=== PATIENT | female | born 1980 | race Caucasian/White ===

== ENCOUNTER 2017-04-19 09:17 | Emergency (ER) | payer SELFPAY ==
[2017-04-19 09:37] VITALS: BP 124/84; PULSE 92; RESP 16; TEMP 98; O2SAT 100
--- NOTE | 2017-04-19 10:06 | C.PDOC ---
History Of Present Illness 36 y/o female with Hx of Sinusitis presents to ED with complaints of nasal congestion, Headache and sore throat. Patient states she has had Bacteremia in the past for which she has been taking Penicillin for. Patient denies fever, chills, n/v/d or any other complaints at this time. Time Seen by Provider: 04/19/17 09:29 Chief Complaint (Nursing): ENT Problem History Per: Patient History/Exam Limitations: None Onset/Duration Of Symptoms: Days Current Symptoms Are (Timing): Still Present Past Medical History Reviewed: Historical Data, Nursing Documentation, Vital Signs Vital Signs: Last Vital Signs Temp 98 F 04/19/17 09:29 Pulse 92 H 04/19/17 09:29 Resp 16 04/19/17 09:29 BP 124/84 04/19/17 09:29 Pulse Ox 100 04/19/17 10:10 Family History: States: No Known Family Hx - Social History Hx Alcohol Use: No Hx Substance Use: No - Immunization History Hx Tetanus Toxoid Vaccination: No Hx Influenza Vaccination: No Hx Pneumococcal Vaccination: No Review Of Systems Except As Marked, All Systems Reviewed And Found Negative. Constitutional: Negative for: Fever, Chills ENT: Positive for: Nose Congestion, Throat Swelling Gastrointestinal: Negative for: Nausea, Vomiting, Diarrhea Neurological: Positive for: Headache Physical Exam - Physical Exam Appears: Non-toxic, No Acute Distress Skin: Normal Color, Warm Head: Atraumatic, Normacephalic Eye(s): bilateral: Other (Watery Eyes) Oral Mucosa: Moist Throat: Normal, No Erythema Neck: Normal ROM Cardiovascular: Rhythm Regular, No Murmur Respiratory: Normal Breath Sounds, No Rales, No Rhonchi, No Wheezing Extremity: Normal ROM, Capillary Refill (<2 seconds) Neurological/Psych: Oriented x3 ED Course And Treatment O2 Sat by Pulse Oximetry: 100 (RA) Pulse Ox Interpretation: Normal Disposition Counseled Patient/Family Regarding: Need For Followup, Rx Given - Disposition Referrals: [facility] at [facility] [Outside] Disposition: HOME/ ROUTINE Disposition Time: 10:03 Condition: STABLE Additional Instructions: Take antibiotics for sinusitis. You can use Afran nasal spay for next 5 days. Follow up in clinic and ENT. Return to the Emergency Department with any further complaints. Prescriptions: Amoxicillin/Clavulanate [Augmentin 875 MG-125 MG] 1 tab PO BID #14 tab Oxymetazoline 0.05% [Oxymetazoline HCl 30 Ml] 1 ml NS BID #1 bottle Prednisone [Deltasone] 40 mg PO DAILY #8 tablet Instructions: Sinusitis (ED) - POA Present On Arrival: None - Clinical Impression Clinical Impression: Sinusitis - Scribe Statement The provider has reviewed the documentation as recorded by the Oneal Roberto All medical record entries made by the Oneal were at my direction and personally dictated by me. I have reviewed the chart and agree that the record accurately reflects my personal performance of the history, physical exam, medical decision making, and the department course for this patient. I have also personally directed, reviewed, and agree with the discharge instructions and disposition.
== END 2017-04-19 10:19 | disposition home or self-care (01) ==
LOC: C.ER 09:17
DX: J32.9 Chronic sinusitis, unspecified (principal)

== ENCOUNTER 2017-05-01 11:04 | Emergency (ER) | payer SELFPAY ==
[2017-05-01 11:25] VITALS: BMI 27.9
[2017-05-01 11:29] VITALS: BP 124/75; TEMP 98.3; O2SAT 98
--- NOTE | 2017-05-01 11:47 | C.PDOC ---
History Of Present Illness 36-YEAR-OLD FEMALE, PRESENTS TO THE EMERGENCY DEPARTMENT WITH MULTIPLE COMPLAINTS. PATIENT CO PERSIST THROAT PAIN X 3 WEEKS. SEEN 04/19 FOR SAME DC W AUGMENTIN AND Oxymetazoline 0.05% [Oxymetazoline HCl 30 Ml] 1 ml NS BID #1 bottle Prednisone [Deltasone] 40 mg PO DAILY #8 tablet. MILD IMPROVEMENT. CONCERNED ABOUT REDNESS BACK OF THROAT. NO FEVER, CHILLS. PS PREV DX REFLUX BUT NOT CURRENTLY ON GI MEDS FOR SAME. PT ALSO CO GEN ACHES, PAINS LEGS, L ARM AND BACK UNK DURATION. NO TRAUMA. ?ASSOC W POSITION, AND ALSO REQUESTING FU FROM RECENT CLINIC APPT. PENDING APPOINTMENT 06/2017 EXAM NAD HEENT NO ERYTHEMA, EXUDATE. TONSIL WNL. UVULA WNL. MMM NO CERV NODES EXT NO ASYM NON TEND. SKIN NO RASH MDM POSSIBLE CHRONIC THROAT PAIN DUE TO GERD? ADVISED NEED FOR CLINIC FU Time Seen by Provider: 05/01/17 11:34 Chief Complaint (Nursing): ENT Problem History Per: Patient History/Exam Limitations: no limitations Past Medical History Reviewed: Historical Data, Nursing Documentation, Vital Signs Vital Signs: Last Vital Signs Temp 98.3 F 05/01/17 11:25 Pulse 87 05/01/17 12:03 Resp 18 05/01/17 12:03 BP 124/75 05/01/17 12:03 Pulse Ox 98 05/01/17 12:03 Family History: States: No Known Family Hx - Social History Hx Alcohol Use: No Hx Substance Use: No - Immunization History Hx Tetanus Toxoid Vaccination: No Hx Influenza Vaccination: No Hx Pneumococcal Vaccination: No Review Of Systems Except As Marked, All Systems Reviewed And Found Negative. Constitutional: Positive for: Malaise. Negative for: Fever ENT: Positive for: Throat Pain Cardiovascular: Negative for: Chest Pain, Palpitations Musculoskeletal: Positive for: Arm Pain, Back Pain Skin: Negative for: Rash Neurological: Negative for: Weakness, Numbness, Headache, Dizziness Physical Exam - Physical Exam Appears: Non-toxic, No Acute Distress Skin: Warm, Dry, No Rash Eye(s): bilateral: Normal Inspection Oral Mucosa: Moist Throat: No Erythema, No Exudate, Other (TONSIL WNL. UVULA WNL) Neck: Normal ROM, Supple, Other (NO CERV NODES) Cardiovascular: Rhythm Regular, No Murmur Respiratory: Normal Breath Sounds, No Accessory Muscle Use Extremity: Normal ROM Neurological/Psych: Oriented x3, Normal Speech ED Course And Treatment O2 Sat by Pulse Oximetry: 98 Medical Decision Making Medical Decision Making: POSSIBLE CHRONIC THROAT PAIN DUE TO GERD? ADVISED NEED FOR CLINIC FU Disposition Counseled Patient/Family Regarding: Diagnosis, Need For Followup, Rx Given - Disposition Referrals: Clinic,Med Surg [Primary Care Provider] - Disposition: HOME/ ROUTINE Disposition Time: 11:50 Condition: GOOD Prescriptions: Omeprazole Magnesium [Prilosec Otc] 20 mg PO QN #30 tablet. Instructions: Diet for Ulcers and Gastritis (ED), Gastroesophageal Reflux Disease (ED) - Clinical Impression Clinical Impression: Chronic throat pain - Scribe Statement The provider has reviewed the documentation as recorded by the Scribe (Ashley Bui) All medical record entries made by the Scribe were at my direction and personally dictated by me. I have reviewed the chart and agree that the record accurately reflects my personal performance of the history, physical exam, medical decision making, and the department course for this patient. I have also personally directed, reviewed, and agree with the discharge instructions and disposition.
[2017-05-01 12:05] VITALS: PULSE 87; RESP 18
== END 2017-05-01 12:04 | disposition home or self-care (01) ==
LOC: C.ER 11:04 → SUPCPDRO 11:04 → C.ER 12:04
DX: G89.29 Other chronic pain (principal); R07.0 Pain in throat

== ENCOUNTER 2018-08-02 15:43 | Emergency (ER) | payer MEDICAID, OTHER ==
[2018-08-02 16:04] VITALS: BMI 21.2
[2018-08-02 16:07] VITALS: BP 129/94; PULSE 92; RESP 18; TEMP 98.7; O2SAT 100
--- NOTE | 2018-08-02 16:48 | RAD ---
HISTORY: productive cough x 2 weeks COMPARISON: None available. TECHNIQUE: Chest PA and lateral FINDINGS: LUNGS: No focal consolidation. Please note that chest x-ray has limited sensitivity for the detection of pulmonary masses. PLEURA: No significant pleural effusion identified. No definite pneumothorax . CARDIOVASCULAR: Heart size appears within normal limits. No significant atherosclerotic calcification present. OSSEOUS STRUCTURES: No acute osseous abnormality identified. VISUALIZED UPPER ABDOMEN: Unremarkable. OTHER FINDINGS: None. IMPRESSION: No focal consolidation, significant pleural effusion, or definite pneumothorax identified.
--- NOTE | 2018-08-02 16:56 | C.PDOC ---
History Of Present Illness 38 y/o female presents to the ED complaining of a productive cough for 2 weeks. Patient reports she is bringing up yellow phlegm, associated with some nasal congestion. Also states that she was treated for H. pylori in the past, and is now concerned that symptoms are related. Patient already went to her ota for treatment and has follow up. She denies any fever, chills, or other associated symptoms. Time Seen by Provider: 08/02/18 15:56 Chief Complaint (Nursing): Cough, Cold, Congestion History Per: Patient History/Exam Limitations: no limitations Onset/Duration Of Symptoms: Days Current Symptoms Are (Timing): Still Present Past Medical History Reviewed: Historical Data, Nursing Documentation, Vital Signs Vital Signs: Last Vital Signs Temp 98.7 F 08/02/18 16:05 Pulse 92 H 08/02/18 16:05 Resp 18 08/02/18 16:05 BP 129/94 H 08/02/18 16:05 Pulse Ox 100 08/02/18 16:05 - Medical History Other PMH: H. pylori, hernia Surgical History: Endoscopy Family History: States: Unknown Family Hx - Social History Hx Alcohol Use: No Hx Substance Use: No - Immunization History Hx Tetanus Toxoid Vaccination: No Hx Influenza Vaccination: No Hx Pneumococcal Vaccination: No Review Of Systems Except As Marked, All Systems Reviewed And Found Negative. Constitutional: Negative for: Fever, Chills ENT: Positive for: Nose Congestion Cardiovascular: Negative for: Chest Pain, Light Headedness Respiratory: Positive for: Cough, Sputum (yellow). Negative for: Shortness of Breath, Wheezing Neurological: Negative for: Headache, Dizziness Physical Exam - Physical Exam Appears: Well, Non-toxic, No Acute Distress Skin: Normal Color, Warm, Dry Head: Atraumatic, Normacephalic Eye(s): bilateral: Normal Inspection Neck: Normal ROM, Supple Chest: Symmetrical Cardiovascular: Rhythm Regular, No Murmur Respiratory: No Accessory Muscle Use, No Rhonchi, No Wheezing, Other (Harsh breath sounds, +actively coughing) Gastrointestinal/Abdominal: Soft, No Tenderness, No Distention Extremity: Bilateral: Atraumatic, Normal Color And Temperature, Normal ROM Neurological/Psych: Oriented x3, Normal Speech ED Course And Treatment O2 Sat by Pulse Oximetry: 100 (RA) Pulse Ox Interpretation: Normal - Other Rad CXR X-Ray: Read By Radiologist Interpretation: FINDINGS: LUNGS: No focal consolidation. Please note that chest x-ray has limited sensitivity for the detection of pulmonary masses. PLEURA: No significant pleural effusion identified. No definite pneumothorax . CARDIOVASCULAR: Heart size appears within normal limits. No significant atherosclerotic calcification present. OSSEOUS STRUCTURES: No acute osseous abnormality identified. VISUALIZED UPPER ABDOMEN: Unremarkable. OTHER FINDINGS: None. IMPRESSION: No focal consolidation, significant pleural effusion, or definite pneumothorax identified. Progress Note: CXR obtained and reviewed, no acute disease. Patient given albuterol nebulizer and PO Zithromax. Requesting further evaluation for H. pylori infection. Advised patient that she needs to follow up with her ota for chronic management. Provided with rx for antibiotics, flonase, inhaler, albuterol nebulizers, and promethazine. Counseled regarding dx of bronchitis and advised to follow up with PMD or return for fever or new/worsening symptoms. Reassessment Condition: Improved Disposition Counseled Patient/Family Regarding: Studies Performed, Diagnosis, Need For Followup, Rx Given - Disposition Referrals: Mary Jo Yee MD [Staff Provider] - Disposition: HOME/ ROUTINE Disposition Time: 16:53 Condition: STABLE Additional Instructions: Follow up with PMD within 1-2 days. Return to ED if feel worse. Prescriptions: Albuterol 0.083% [Albuterol Sulfate 3 Ml] 3 ml IH .Q4-6H #100 vial Nebulizer and Compressor [Robins Choice Nebulizer] 1 each MC QID #1 each Fluticasone Nasal [Flonase] 1 spr NS BID #1 spr Mask, Face [Nebulizer Aerosol Mask Adult] 1 dev XX PRN PRN #1 dev PRN Reason: Cough Albuterol Sulfate [Proair Hfa] 1 puff IH Q6 PRN #1 inh PRN Reason: Cough Promethazine HCl/Codeine [Prometh-Codein 6.25-10 mg/5 ml] 5 ml PO .Q4-6H #150 ml Azithromycin [Zithromax] 250 mg PO DAILY #4 tab Instructions: Acute Bronchitis Forms: [employer] (Japanese) - POA Present On Arrival: None - Clinical Impression Clinical Impression: Bronchitis - 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 - Scribe Statement The provider has reviewed the documentation as recorded by the Scribe (Marianne Enciso) All medical record entries made by the Scribe were at my direction and pers onally dictated by me. I have reviewed the chart and agree that the record accurately reflects my personal performance of the history, physical exam, medical decision making, and the department course for this patient. I have also personally directed, reviewed, and agree with the discharge instructions and disposition.
[2018-08-02] MEDS ORDERED: Albuterol-Ipratrop 3 mg / 0.5 (3 ml) UD ONE (17:00)
[2018-08-02] MEDS ORDERED: Albuterol-Ipratrop 3 mg / 0.5 (3 ml) UD INH STA (17:00)
== END 2018-08-02 17:40 | disposition home or self-care (01) ==
LOC: C.ER 15:43
DX: J40 Bronchitis, not specified as acute or chronic (principal)

== ENCOUNTER 2018-08-04 18:30 | Emergency (ER) | payer OTHER ==
[2018-08-04 18:30] VITALS: BMI 21.2
[2018-08-04 18:41] VITALS: O2SAT 100
--- NOTE | 2018-08-04 19:33 | C.PDOC ---
History Of Present Illness 38 year old female presents of nausea, dizziness, coughing for the past few days. Patient was seen in the ED 2 days ago with similar complaints, patient had a negative CXR. Patient reports taking phenergan/codeine. Patient speaking in full sentences. Patient denies fever, chills, vomit, diarrhea, headache, trauma, injury, fall. Time Seen by Provider: 08/04/18 19:33 Chief Complaint (Nursing): Dizziness/Lightheaded History Per: Patient History/Exam Limitations: no limitations Onset/Duration Of Symptoms: Days Current Symptoms Are (Timing): Still Present Severity: Mild Pain Scale Rating Of: 2 Reports Recently: Seen In ED (08/02/18), Treated By A Physician Recent travel outside of the [place]: No Additional History Per: Patient, Family Past Medical History Reviewed: Historical Data, Nursing Documentation, Vital Signs Vital Signs: Last Vital Signs Temp 98.8 F 08/04/18 18:33 Pulse 102 H 08/04/18 18:33 Resp 20 08/04/18 18:33 BP 133/93 H 08/04/18 18:33 Pulse Ox 100 08/04/18 18:33 - Medical History PMH: No Chronic Diseases Surgical History: Endoscopy Family History: States: Unknown Family Hx - Social History Hx Alcohol Use: No Hx Substance Use: No - Immunization History Hx Tetanus Toxoid Vaccination: No Hx Influenza Vaccination: No Hx Pneumococcal Vaccination: No Review Of Systems Constitutional: Negative for: Fever, Chills Cardiovascular: Negative for: Chest Pain Respiratory: Positive for: Cough. Negative for: Shortness of Breath Gastrointestinal: Positive for: Nausea. Negative for: Vomiting, Abdominal Pain Neurological: Negative for: Weakness, Numbness, Dizziness Psych: Positive for: Anxiety Physical Exam - Physical Exam Appears: Non-toxic, No Acute Distress Skin: Warm, Dry Head: Normacephalic Oral Mucosa: Moist Tongue: Normal Appearing Lips: Normal Appearing Throat: No Erythema, No Exudate Neck: Supple Chest: Symmetrical Cardiovascular: Rhythm Regular Respiratory: No Rales, No Rhonchi, No Wheezing Gastrointestinal/Abdominal: Soft, No Tenderness, No Guarding, No Rebound Extremity: Bilateral: Atraumatic Neurological/Psych: Oriented x3 Gait: Steady ED Course And Treatment - Laboratory Results Result Diagrams: 08/04/18 20:02 08/04/18 20:02 O2 Sat by Pulse Oximetry: 100 (ON RA) Pulse Ox Interpretation: Normal Progress Note: Plan: - VBG. - EKG. - Labs. - Duoneb. - IV fluids. - Zofran 4 mg IVP. - Blood culture. - Influenza A B. - UA Reevaluation Time: 20:58 Reassessment Condition: Improved Disposition Counseled Patient/Family Regarding: Studies Performed, Diagnosis, Need For Followup, Rx Given - Disposition Referrals: Mary Jo Yee MD [Family Provider] - Disposition: HOME/ ROUTINE Disposition Time: 19:33 Condition: FAIR Additional Instructions: Please do not take the phenergan with codeine. Prescriptions: Prednisone [Deltasone] 20 mg PO DAILY #5 tablet Instructions: Cough, Adult (DC) Forms: [employer] (Singaporean) - Clinical Impression Clinical Impression: Reactive airway disease, Cough - Scribe Statement The provider has reviewed the documentation as recorded by the Scribe Andrew Hua All medical record entries made by the Scribe were at my direction and personally dictated by me. I have reviewed the chart and agree that the record accurately reflects my personal performance of the history, physical exam, medic al decision making, and the department course for this patient. I have also personally directed, reviewed, and agree with the discharge instructions and disposition.
[2018-08-04] MEDS ORDERED: Sodium Chloride 0.9% 1,000 ML IV ONE (19:36)
[2018-08-04] MEDS: Albuterol-Ipratrop 3 mg / 0.5 (3 ml) UD IH SCH ×3 (19:45→20:12)
[2018-08-04] MEDS ORDERED: Sodium Chloride 0.9% 1,000 ML ONE (19:52)
[2018-08-04 20:05] LABS: BASO % 0.7 % (0.0-2.0); EOS # 0.7 K/uL (0.0-0.7); EOS % 9.2 % (0.0-4.0); HEMOGLOBIN 12.7 g/dL (11.0-16.0); LYMPH # 2.7 K/uL (1.0-4.3); LYMPH % 36.6 % (20.0-40.0); MEAN CELL VOLUME 64.7 fL (81.0-99.0); MEAN CORPUSCULAR HEMOGLOBIN 20.3 pg (27.0-31.0); MEAN CORPUSCULAR HGB CONC 31.3 g/dL (33.0-37.0); MEAN PLATELET VOLUME 9.2 fL (7.2-11.7); MONO # 0.4 K/uL (0.0-0.8); MONO % 5.3 % (0.0-10.0); NEUT # 3.6 K/uL (1.8-7.0); NEUT % 48.2 % (50.0-75.0); NRBC % 0.1 % (0.0-2.0); RBC 6.26 Mil/uL (3.80-5.20); RED CELL DISTRIBUTION WIDTH 16.4 % (11.5-14.5); WHITE BLOOD COUNT 7.4 K/uL (4.8-10.8)
[2018-08-04] MEDS ORDERED: Albuterol-Ipratrop 3 mg / 0.5 (3 ml) UD ONE (20:08)
[2018-08-04 20:09] LABS: SQUAMOUS EPITHIAL 8 /hpf (0-5); URINE BACTERIA RARE (<OCC); URINE BILIRUBIN NEGATIVE (NEGATIVE); URINE BLOOD 1+ (NEGATIVE); URINE CLARITY Hazy (Clear); URINE COLOR Straw (YELLOW); URINE GLUCOSE (UA) NORMAL (Normal); URINE LEUKOCYTE ESTERASE NEG Leu/uL (Negative); URINE PROTEIN NEGATIVE (NEGATIVE); URINE UROBILINOGEN NORMAL mg/dL (0.2-1.0)
[2018-08-04 20:13] LABS: VENOUS BLOOD GAS BASE EXCESS 1.2 mmol/L (0.0-2.0); VENOUS BLOOD GAS PCO2 50 mmHg (40-60); VENOUS BLOOD GAS PO2 16 mm/Hg (30-55); VENOUS BLOOD PH 7.35 (7.32-7.43)
[2018-08-04 20:18] LABS: ALB/GLOB RATIO 1.2 (1.0-2.1); ALBUMIN 4.8 g/dL (3.5-5.0); ALT/SGPT 23 U/L (9-52); AST/SGOT 39 U/L (14-36); BLOOD UREA NITROGEN 12 mg/dL (7-17); CALCIUM 9.4 mg/dl (8.6-10.4); GFR NON-AFRICAN AMERICAN > 60; INR 1.1; PROTHROMBIN TIME 12.2 SECONDS (9.7-12.2)
[2018-08-04 20:28] VITALS: BP 130/86; PULSE 98; RESP 20; TEMP 98.3
--- NOTE | 2018-08-05 12:53 | CARD ---
APPROVED REPORT Date of service: 08/04/2018 EKG Measurement Heart [id number] <Conclusion> Normal sinus rhythm Normal ECG
== END 2018-08-04 21:11 | disposition home or self-care (01) ==
LOC: C.ER 18:30
DX: J45.909 Unspecified asthma, uncomplicated (principal); R05 Cough
CPT/HCPCS: 80053; 81001; 82803; 82948; 85025; 85610; 85730; 87040; 87804; 93005; 94640; 96361; 96374; 99285; J2405; J7030

== ENCOUNTER 2018-08-14 08:54 | Emergency (ER) | payer OTHER ==
[2018-08-14 08:55] VITALS: BMI 21.2
[2018-08-14 09:33] VITALS: O2SAT 100
[2018-08-14] MEDS ORDERED: Sodium Chloride 0.9% 1,000 ML IV ONE (09:44)
--- NOTE | 2018-08-14 09:44 | C.PDOC ---
History Of Present Illness 38-year-old female, presents to the emergency department with complaints of upper abdominal pain. Patient states her stomach becomes hard like "a rock" every time she eats and is afraid to eat. Patient notes a remote history of H pylori. Notes she had an endoscopy in March which showed gastritis. Patient denies fever, nausea/vomiting. Time Seen by Provider: 08/14/18 09:38 Chief Complaint (Nursing): Abdominal Pain History Per: Patient History/Exam Limitations: no limitations Past Medical History Reviewed: Historical Data, Nursing Documentation, Vital Signs Vital Signs: Last Vital Signs Temp 98.4 F 08/14/18 09:21 Pulse 81 08/14/18 09:21 Resp 18 08/14/18 09:21 BP 114/81 08/14/18 09:21 Pulse Ox 100 08/14/18 09:21 Surgical History: Endoscopy Family History: States: No Known Family Hx - Social History Hx Alcohol Use: No Hx Substance Use: No - Immunization History Hx Tetanus Toxoid Vaccination: No Hx Influenza Vaccination: No Hx Pneumococcal Vaccination: No Review Of Systems Constitutional: Negative for: Fever Cardiovascular: Negative for: Chest Pain Respiratory: Negative for: Shortness of Breath Gastrointestinal: Positive for: Abdominal Pain. Negative for: Nausea, Vomiting Physical Exam - Physical Exam Appears: Non-toxic, No Acute Distress Skin: Warm, Dry, No Rash Head: Atraumatic Eye(s): bilateral: Normal Inspection, PERRL, EOMI Nose: Normal Oral Mucosa: Moist Lips: Normal Appearing Neck: Normal ROM Cardiovascular: Rhythm Regular, No Murmur Respiratory: Normal Breath Sounds, No Accessory Muscle Use Gastrointestinal/Abdominal: Soft, Tenderness (upper), No Guarding, No Rebound Back: Normal Inspection Extremity: Normal ROM, No Deformity Neurological/Psych: Oriented x3, Normal Speech ED Course And Treatment - Laboratory Results Result Diagrams: 08/14/18 12:27 08/14/18 12:27 O2 Sat by Pulse Oximetry: 100 Pulse Ox Interpretation: Normal (RA) Medical Decision Making Medical Decision Making: suspect gastrits reflux. pud. labs pending pt reassesed pain nearly resolved. no focal ttp. pt on period. states feels well for dc. advise outpt fu and return precautions Disposition - Disposition Referrals: [facility] [Outside] [facility] [Outside] Juve Guo MD [Staff Provider] - Disposition: HOME/ ROUTINE Disposition Time: 14:00 Condition: STABLE Prescriptions: Famotidine [Pepcid] 20 mg PO DAILY #20 tab Instructions: Acute Abdomen (Belly Pain) Forms: [employer] ([place]) - Clinical Impression Clinical Impression: Abdominal pain - Scribe Statement The provider has reviewed the documentation as recorded by the Scribe (Ashley Bui) Provider Attestation: All medical record entries made by the Scribe were at my direction and personally dictated by me. I have reviewed the chart and agree that the record accurately reflects my personal performance of the history, physical exam, medical decision making, and the department course for this patient. I have also personally directed, reviewed, and agree with the discharge instructions and disposition.
[2018-08-14] MEDS ORDERED: Sodium Chloride 0.9% 1,000 ML ONE (11:37)
[2018-08-14 12:17] LABS: URINE BILIRUBIN NEGATIVE (NEGATIVE); URINE CLARITY Hazy (Clear); URINE GLUCOSE (UA) NORMAL (Normal)
[2018-08-14 12:18] LABS: SQUAMOUS EPITHIAL 3 /hpf (0-5); URINE BLOOD 3+ (NEGATIVE); URINE LEUKOCYTE ESTERASE 1+ Leu/uL (Negative); URINE PROTEIN 2+ mg/dL (NEGATIVE); URINE UROBILINOGEN NORMAL mg/dL (0.2-1.0)
[2018-08-14 12:19] LABS: HCG,QUALITATIVE URINE NEGATIVE (NEGATIVE)
[2018-08-14 12:20] LABS: URINE COLOR RED (YELLOW)
[2018-08-14 12:30] LABS: BASO % 0.5 % (0.0-2.0); EOS # 0.3 K/uL (0.0-0.7); HEMOGLOBIN 11.7 g/dL (11.0-16.0); LYMPH # 2.3 K/uL (1.0-4.3); LYMPH % 53.9 % (20.0-40.0); MEAN CELL VOLUME 64.5 fL (81.0-99.0); MEAN CORPUSCULAR HEMOGLOBIN 20.4 pg (27.0-31.0); MEAN CORPUSCULAR HGB CONC 31.7 g/dL (33.0-37.0); MEAN PLATELET VOLUME 9.3 fL (7.2-11.7); MONO # 0.3 K/uL (0.0-0.8); MONO % 8.3 % (0.0-10.0); NEUT # 1.2 K/uL (1.8-7.0); NEUT % 29.3 % (50.0-75.0); NRBC % 0.2 % (0.0-2.0); RBC 5.75 Mil/uL (3.80-5.20); RED CELL DISTRIBUTION WIDTH 16.3 % (11.5-14.5); WHITE BLOOD COUNT 4.2 K/uL (4.8-10.8)
[2018-08-14 12:32] LABS: BLOOD UREA NITROGEN 12 mg/dL (7-17); GFR NON-AFRICAN AMERICAN > 60
[2018-08-14 12:33] LABS: ALB/GLOB RATIO 1.3 (1.0-2.1); ALBUMIN 4.5 g/dL (3.5-5.0); BILIRUBIN,DIRECT 0.7 mg/dL (0.0-0.4); CALCIUM 8.9 mg/dl (8.6-10.4)
[2018-08-14 12:34] LABS: ALT/SGPT 29 U/L (9-52); AST/SGOT 29 U/L (14-36); INR 1.1; LIPASE 60 U/L (23-300); PROTHROMBIN TIME 12.2 SECONDS (9.7-12.2)
[2018-08-14 12:59] VITALS: BP 119/76; PULSE 86; RESP 20; TEMP 98.1
--- NOTE | 2018-08-15 21:51 | CARD ---
APPROVED REPORT Date of service: 08/14/2018 EKG Measurement Heart [id number] <Conclusion> Normal sinus rhythm Cannot rule out Anterior infarct, age undetermined Abnormal ECG
== END 2018-08-14 12:59 | disposition home or self-care (01) ==
LOC: C.ER 08:54
DX: R10.10 Upper abdominal pain, unspecified (principal)
CPT/HCPCS: 80053; 81001; 82248; 83690; 84703; 85025; 85610; 85730; 93005; 96361; 96374; 96375; 99284; C9113; J2405; J7030

== ENCOUNTER 2018-10-03 09:42 | Day surgery (SDC) | payer OTHER ==
[2018-10-03 10:12] VITALS: BMI 19.3
[2018-10-03] MEDS ORDERED: Propofol 10 mg/ml Inj (20 ML) ONE (11:08)
[2018-10-03] MEDS ORDERED: Lidocaine Hydrochloride 5 ML INJ ONE (11:09)
[2018-10-03] MEDS ORDERED: Belladonna-Phenobarbital PO STA (11:09)
--- NOTE | 2018-10-03 11:09 | CP.SDSHP ---
Same Day Surgery H & P - History Proposed Procedure: egd Pre-Op Diagnosis: SEE NOTES - Previous Medical/Surgical History Misc: Other Pain: 4.Moderate Pain - Allergies Allergies: Allergies No Known Allergies Allergy (Verified 08/04/18 18:42) - Physical Exam General Appearance: N Vital Signs: Vital Signs 10/03/18 10:17 Temperature 99.5 F Pulse Rate 85 Respiratory 20 Rate Blood Pressure 113/75 O2 Sat by Pulse 100 Oximetry Mental Status: Alert & Oriented x3 Neuro: WNL Heart: WNL Lungs: WNL GI: Other - {Optional Preform as Required} Breast: WNL Abdomen: Other Rectal: Other Integument: WNL : WNL Ortho: WNL ENT: WNL - Impression Pt. Evaluated Today:Candidate for Anesthesia & Procedure: Yes - Date & Time Time: 11:08 Short Stay Discharge - Short Stay Discharge Admitting Diagnosis/Reason for Visit: ABDOMNINAL PAIN, DYSPEPSIA Disposition: HOME/ ROUTINE
[2018-10-03 11:38] VITALS: TEMP 99.3
[2018-10-03 12:23] VITALS: O2SAT 100
[2018-10-03 12:26] VITALS: BP 111/84; PULSE 80; RESP 17
== END 2018-10-03 12:20 | disposition home or self-care (01) ==
LOC: C.ENDO 09:42
PROVIDERS: ATTEND Specialist
DX: K30 Functional dyspepsia (principal); R10.84 Generalized abdominal pain; R11.0 Nausea; K21.0 Gastro-esophageal reflux disease with esophagitis; K44.9 Diaphragmatic hernia without obstruction or gangrene; B96.81 Helicobacter pylori [H. pylori] as the cause of diseases classified elsewhere
CPT/HCPCS: 43239; 84703; 88305; 88342; J2704

== ENCOUNTER 2018-12-27 18:28 | Emergency (ER) | payer OTHER ==
[2018-12-27 19:00] VITALS: BP 133/87; PULSE 85; RESP 17; TEMP 99.3; O2SAT 100
--- NOTE | 2018-12-27 21:15 | C.PDOC ---
History Of Present Illness 38 year old female presents to the ED for evaluation of dizziness which began this morning. Patient describes her symptoms as a room-spinning sensation. She also states she feels like her ears are clogged and reports slight nausea. Patient reports experiencing several episodes of a similar dizziness before, but states it usually doesn't last very long and self-resolves. Patient is concerned because the dizziness lasted all day today and presents to the ED for further evaluation. Patient denies fever, chills, vomiting, extremity numbness/weakness. Time Seen by Provider: 12/27/18 19:22 Chief Complaint (Nursing): Dizziness/Lightheaded History Per: Patient History/Exam Limitations: no limitations Onset/Duration Of Symptoms: Hrs Current Symptoms Are (Timing): Still Present Past Medical History Reviewed: Historical Data, Nursing Documentation, Vital Signs Vital Signs: Last Vital Signs Temp 99.3 F 12/27/18 18:53 Pulse 85 12/27/18 18:53 Resp 17 12/27/18 18:53 BP 133/87 12/27/18 18:53 Pulse Ox 100 12/27/18 18:53 - Medical History PMH: Anemia Denies: Chronic Kidney Disease Surgical History: Endoscopy Family History: States: Unknown Family Hx - Social History Hx Alcohol Use: No Hx Substance Use: No - Immunization History Hx Tetanus Toxoid Vaccination: No Hx Influenza Vaccination: No Hx Pneumococcal Vaccination: No Review Of Systems Constitutional: Negative for: Fever, Chills, Weakness Eyes: Positive for: Other (ears clogged) Cardiovascular: Negative for: Chest Pain Respiratory: Negative for: Cough, Shortness of Breath Gastrointestinal: Positive for: Nausea. Negative for: Vomiting, Abdominal Pain Skin: Negative for: Rash Neurological: Positive for: Dizziness. Negative for: Weakness, Numbness Physical Exam - Physical Exam Appears: Well, Non-toxic, No Acute Distress Skin: Normal Color, Warm, Dry Head: Atraumatic, Other (dizziness induced with change in head position (sitting forward)) Eye(s): bilateral: Normal Inspection (no scleral icterus ), PERRL, EOMI, Other (no nystagmus ) Ear(s): Left: Other, Right: TM Obscured By Wax, Bilateral: Normal (no drainage ), Other Nose: Other (enlarged turbinates and clear mucus discharge bilaterally ) Oral Mucosa: Moist Neck: Normal ROM, Supple Chest: Symmetrical Respiratory: No Accessory Muscle Use, Other (normal inspiratory effort ) Extremity: Normal ROM Neurological/Psych: Oriented x3, Normal Cranial Nerves (grossly intact ), Normal Motor, Normal Sensation, No Romberg Other Neurological Findings: No Facial Palsy ED Course And Treatment O2 Sat by Pulse Oximetry: 100 (on RA ) Pulse Ox Interpretation: Normal Medical Decision Making Medical Decision Making: Progress: Antivert PO, Reglan IM, Sudafed PO given. On reassessment, patient is resting comfortably, showing no signs of distress, and reports an improvement in her symptoms. Patient is stable for discharge and is advised to follow up with her PMD within 1-2 days for further evaluation. Disposition Counseled Patient/Family Regarding: Diagnosis, Need For Followup, Rx Given - Disposition Referrals: Dillon Boswell MD [Staff Provider] - Disposition: HOME/ ROUTINE Disposition Time: 21:15 Condition: IMPROVED Prescriptions: Cetirizine HCl/Pseudoephedrine [Zyrtec-D Tablet] 1 each PO DAILY #14 tab.er.12h Meclizine [Meclizine*] 25 mg PO Q6 #30 tab Ondansetron ODT [Zofran ODT] 4 mg PO TID #15 odt Instructions: Vertigo (a Type of Dizziness) (DC), Sinus Headache (DC) Forms: General Discharge Instructions, [facility] (Hungarian), Work Excuse - Clinical Impression Clinical Impression: Vertigo, Sinusitis nasal - PA / [employer] / Resident Statement MD/DO has reviewed & agrees with the documentation as recorded. - Scribe Statement The provider has reviewed the documentation as recorded by the Scribe (Carolyn Werner) All medical record entries made by the Scribe were at my direction and perso micheal dictated by me. I have reviewed the chart and agree that the record accurately reflects my personal performance of the history, physical exam, medical decision making, and the department course for this patient. I have also personally directed, reviewed, and agree with the discharge instructions and disposition.
== END 2018-12-27 21:23 | disposition home or self-care (01) ==
LOC: C.ER 18:28
DX: R42 Dizziness and giddiness (principal); J32.9 Chronic sinusitis, unspecified
CPT/HCPCS: 96372; 99281; J2765

== ENCOUNTER 2019-01-24 08:02 | Emergency (ER) | payer MEDICAID, OTHER ==
[2019-01-24] MEDS ORDERED: Sodium Chloride 0.9% 1,000 ML IV ONE (08:31)
[2019-01-24] MEDS ORDERED: Belladonna-Phenobarbital PO STA (08:31)
[2019-01-24] MEDS ORDERED: Aluminum Hydroxide/Magnesium Hydroxide Susp (30 mL) PO STA ×2 (08:31→11:20)
[2019-01-24] MEDS ORDERED: Aluminum Hydroxide/Magnesium Hydroxide Susp (30 mL) ONE ×2 (08:41→11:06)
[2019-01-24] MEDS ORDERED: Sodium Chloride 0.9% 1,000 ML ONE (08:41)
[2019-01-24] MEDS ORDERED: Belladonna-Phenobarbital ONE (08:41)
[2019-01-24 09:01] LABS: BASO % 0.5 % (0.0-2.0); EOS # 0.1 K/uL (0.0-0.7); EOS % 3.7 % (0.0-4.0); HEMOGLOBIN 11.2 g/dL (11.0-16.0); LYMPH # 1.6 K/uL (1.0-4.3); LYMPH % 49.9 % (20.0-40.0); MEAN CORPUSCULAR HEMOGLOBIN 21.1 pg (27.0-31.0); MEAN CORPUSCULAR HGB CONC 31.9 g/dL (33.0-37.0); MEAN PLATELET VOLUME 8.8 fL (7.2-11.7); MONO # 0.2 K/uL (0.0-0.8); MONO % 7.5 % (0.0-10.0); NEUT # 1.2 K/uL (1.8-7.0); NEUT % 38.4 % (50.0-75.0); NRBC % 0.1 % (0.0-2.0); RBC 5.32 Mil/uL (3.80-5.20); RED CELL DISTRIBUTION WIDTH 17.4 % (11.5-14.5); WHITE BLOOD COUNT 3.2 K/uL (4.8-10.8)
[2019-01-24 09:05] LABS: HCG,QUALITATIVE URINE NEGATIVE (NEGATIVE)
[2019-01-24 09:08] LABS: SQUAMOUS EPITHIAL 1 /hpf (0-5); URINE BILIRUBIN NEGATIVE (NEGATIVE); URINE BLOOD NEGATIVE (NEGATIVE); URINE CLARITY Clear (Clear); URINE COLOR Yellow (YELLOW); URINE GLUCOSE (UA) NORMAL (Normal); URINE LEUKOCYTE ESTERASE NEG Leu/uL (Negative); URINE PROTEIN NEGATIVE (NEGATIVE); URINE UROBILINOGEN NORMAL mg/dL (0.2-1.0)
[2019-01-24 09:15] LABS: ALB/GLOB RATIO 1.5 (1.0-2.1); ALBUMIN 4.3 g/dL (3.5-5.0); ALT/SGPT 48 U/L (9-52); AST/SGOT 47 U/L (14-36); BLOOD UREA NITROGEN 10 mg/dL (7-17); CALCIUM 9.1 mg/dl (8.6-10.4); GFR NON-AFRICAN AMERICAN > 60; LIPASE 37 U/L (23-300)
--- NOTE | 2019-01-24 09:18 | C.PDOC ---
History Of Present Illness 38 y/o female with a PMHx of GERD, followed by Dr. Stewart, presents to the Emergency Department with complaints of epigastric pain for the past 11 days. Pain starts at the epigastrium and radiates around her waist at times. Associated with nausea and vomiting. Pain is rated an 8/10, constant but waxes/wanes in intensity. For the last few days pain has worsened, prompting patient to come in for evaluation. Patient has an upcoming appointment with GI in 1 month. Time Seen by Provider: 01/24/19 08:26 Chief Complaint (Nursing): Abdominal Pain History Per: Patient History/Exam Limitations: no limitations Onset/Duration Of Symptoms: Days (x 11) Current Symptoms Are (Timing): Still Present Location Of Pain/Discomfort: Epigastric Past Medical History Reviewed: Historical Data, Nursing Documentation, Vital Signs Vital Signs: Last Vital Signs Temp 98.7 F 01/24/19 08:09 Pulse 75 01/24/19 08:09 Resp 18 01/24/19 08:09 BP 113/76 01/24/19 08:09 Pulse Ox 100 01/24/19 08:09 - Medical History PMH: Anemia Denies: Chronic Kidney Disease Surgical History: Endoscopy Family History: States: Unknown Family Hx - Social History Hx Alcohol Use: No Hx Substance Use: No - Immunization History Hx Tetanus Toxoid Vaccination: No Hx Influenza Vaccination: No Hx Pneumococcal Vaccination: No Review Of Systems Except As Marked, All Systems Reviewed And Found Negative. Constitutional: Negative for: Fever, Chills Cardiovascular: Negative for: Chest Pain Respiratory: Negative for: Shortness of Breath Gastrointestinal: Positive for: Nausea, Vomiting, Abdominal Pain. Negative for: Diarrhea, Constipation Neurological: Negative for: Weakness, Numbness, Dizziness Physical Exam - Physical Exam Appears: Non-toxic, In Acute Distress (appears in mild pain) Skin: Normal Color, Warm, Dry Head: Atraumatic, Normacephalic Eye(s): bilateral: Normal Inspection, PERRL, EOMI Neck: Normal ROM Chest: Symmetrical Cardiovascular: Rhythm Regular, No Murmur Respiratory: Normal Breath Sounds, No Accessory Muscle Use Gastrointestinal/Abdominal: Soft, Tenderness (mild epigastric tenderness), No Distention Back: No CVA Tenderness, No Vertebral Tenderness Extremity: Bilateral: Atraumatic, Normal Color And Temperature Neurological/Psych: Oriented x3, Normal Speech ED Course And Treatment - Laboratory Results Result Diagrams: 01/24/19 08:57 01/24/19 08:57 Lab Results: Urine Color Yellow (YELLOW) 01/24/19 08:57 Urine Clarity Clear (Clear) 01/24/19 08:57 Urine pH 8.0 (5.0-8.0) 01/24/19 08:57 Ur Specific Mathis 1.015 (1.003-1.030) 01/24/19 08:57 Urine Protein Negative mg/dL (NEGATIVE) 01/24/19 08:57 Urine Glucose (UA) Normal mg/dL (Normal) 01/24/19 08:57 Urine Ketones Negative mg/dL (NEGATIVE) 01/24/19 08:57 Urine Blood Negative (NEGATIVE) 01/24/19 08:57 Urine Nitrate Negative (NEGATIVE) 01/24/19 08:57 Urine Bilirubin Negative (NEGATIVE) 01/24/19 08:57 Urine Urobilinogen Normal mg/dL (0.2-1.0) 01/24/19 08:57 Ur Leukocyte Esterase Neg Concepcion/uL (Negative) 01/24/19 08:57 Urine WBC (Auto) 1 /hpf (0-5) 01/24/19 08:57 Urine RBC (Auto) 1 /hpf (0-3) 01/24/19 08:57 Ur Squamous Epith Cells 1 /hpf (0-5) 01/24/19 08:57 Urine HCG, Qual Negative (NEGATIVE) 01/24/19 08:57 Urine HCG, Qual Negative (NEGATIVE) 01/24/19 08:57 O2 Sat by Pulse Oximetry: 100 Pulse Ox Interpretation: Normal Medical Decision Making Medical Decision Making: Impression: GERD Plan: - Labs - IV Fluids - 30 ml PO Maalox - 1 tab PO - 20 mg IV Pepcid - 4 mg IV Zofran Spoke to Dr. Stewart, who recommends patient go home on her same medications and follow up in the office in 1 month, as scheduled. On re-evaluation patient reports that her pain has improved and is now lowered from a 10 to 2. She is concerned that her pain will recur tonight again. Reviewed prior records including most recent endoscopy notes, showing no ulcer or bleeding but there is a hiatal hernia. Plan is to discharge patient home with rx for and Maalox. Disposition Discussed With : Lon Stewart Doctor Will See Patient In The: Office Counseled Patient/Family Regarding: Diagnosis, Need For Followup, Rx Given - Disposition Referrals: Lon Stewart [Staff Provider] - Disposition: HOME/ ROUTINE Disposition Time: 10:33 Condition: STABLE Prescriptions: Aluminum Hydroxide/Magnesium H [Maalox 30 ml] 30 ml PO TID #1 bottle Phenobarb/Hyoscy/Atropine/Scop [ Elixir] 16.2 mg PO HS #150 ml Instructions: Acid Reflux (Gastroesophageal Reflux Disease), Adult (DC) Forms: [facility] (Comoran), General Discharge Instructions - POA Present On Arrival: None - Clinical Impression Clinical Impression: Abdominal pain, Gastritis - Scribe Statement The provider has reviewed the documentation as recorded by the Oneal Enciso Provider Attestation: All medical record entries made by the Lemuelibeagle were at my direction and personally dictated by me. I have reviewed the chart and agree that the record accurately reflects my personal performance of the history, physical exam, medical decision making, and the department course for this patient. I have also personally directed, reviewed, and agree with the discharge instructions and disposition.
[2019-01-24 11:25] VITALS: BP 110/74; PULSE 74; RESP 20; TEMP 98.6; O2SAT 99
== END 2019-01-24 11:18 | disposition home or self-care (01) ==
LOC: C.ER 08:02
DX: K29.70 Gastritis, unspecified, without bleeding (principal)
CPT/HCPCS: 80053; 81001; 83690; 84703; 85025; 96361; 96374; 96375; 99284; J2405; J7030